=== PATIENT | male | born 1960 | race Caucasian/White ===

== ENCOUNTER 2020-12-10 15:08 | Inpatient (IN) | payer OTHER ==
[~2020-12-10] VITALS: Ht 152.4 cm; Wt 71.7 kg
[2020-12-10 15:08] VITALS: BP 147/77
[2020-12-10 16:03] LABS: BASOPHILS 1.2 % (0.0-2.0); EOSINOPHILS 2.1 % (0.0-3.0); HEMATOCRIT 33.4 % (42.0-52.0); HEMOGLOBIN 10.7 gm/dL (14.0-18.0); LYMPHOCYTES 25.5 % (24.0-44.0); MCH 24.8 pg (26.0-34.0); MCHC 32.1 g/dL (28.0-37.0); MCV 77.3 fL (80.0-100.0); MONOCYTES 14.6 % (1.0-8.0); PLATELET COUNT 154 thou/uL (150-400); POLYS 56.6 % (36.0-66.0); RBC 4.31 mil/uL (4.50-6.00); RDW 19.1 % (10.5-14.5); WBC 3.6 thou/uL (4.0-11.0)
[2020-12-10 16:04] LABS: CALCIUM 8.7 mg/dL (8.5-10.1); POTASSIUM 3.8 mmol/L (3.5-5.1)
[2020-12-10 16:10] LABS: ALBUMIN 2.9 g/dL (3.4-5.0); TOTAL BILIRUBIN 1.5 mg/dL (0.2-1.0); TOTAL PROTEIN 7.8 g/dL (6.4-8.2)
[2020-12-10 16:14] LABS: APTT 25.7 Seconds (24.5-32.8); INR 1.11
[2020-12-10 18:23] VITALS: BP 142/66
[2020-12-10 18:45] VITALS: BP 147/79
[2020-12-10 20:15] VITALS: BP 130/69
[2020-12-10 20:30] LABS: HEMATOCRIT 32.5 % (42.0-52.0); HEMOGLOBIN 10.1 gm/dL (14.0-18.0); MCH 24.4 pg (26.0-34.0); MCHC 31.2 g/dL (28.0-37.0); MCV 78.1 fL (80.0-100.0); RBC 4.15 mil/uL (4.50-6.00); RDW 18.9 % (10.5-14.5); WBC 3.4 thou/uL (4.0-11.0)
--- NOTE | 2020-12-11 00:14 | NUR ---
CALLED DR. NEIL WITH CEITICAL TROP. OF 0.92. PUT IN AN ORDER TO DO THE THIRD TROP ON AT APPROX 0145. PATIENT ADMITTED, RESTING WELL. WILL CONTINUE TO ROUND ON THIS PATIENT. CALL LIGHT IS IN REACH.
[2020-12-11 00:30] VITALS: BP 139/74
[2020-12-11 01:01] LABS: URINE BILIRUBIN 1+ (Negative); URINE BLOOD NEGATIVE (Negative); URINE CLARITY CLEAR; URINE COLOR YELLOW; URINE GLUCOSE-RANDOM* NEGATIVE (Negative); URINE KETONES 1+ (Negative); URINE LEUKOCYTES-REFLEX NEGATIVE (Negative); URINE NITRITE-REFLEX NEGATIVE (Negative); URINE PROTEIN (DIPSTICK) NEGATIVE (Negative)
[2020-12-11 01:49] LABS: ICTOTEST (BILI CONFIRMATORY) Positive (Negative)
[2020-12-11 04:45] VITALS: BP 142/74
--- NOTE | 2020-12-11 05:50 | EKG ---
[address] [place] [address] ELECTROCARDIOGRAM REPORT Name: SHAN LY Room #: 212-P ADM IN M.R.#: [id number] Admission: 12/10/20 Attend Phys: Medardo Asher MD Discharge: Date of : 60 Report #: [id number] [facility] ED Test Date: 2020-12-10 Test Time: 15:46:39 Pat Name: SHAN LY Department: Room: 212 Gender: M Concrete Handler: : 1960 Requested By: Kleber Cox Order Number: [id number] MD: Mo Lott Measurements Intervals [place] Rate: 84 P: 41 NM: 180 QRS: -24 QRSD: 114 T: 108 QT: 384 QTc: 454 Interpretive Statements Sinus rhythm Probable left atrial enlargement Borderline intraventricular conduction delay RVH with secondary repolarization abnrm No previous ECG available for comparison Electronically Signed On 12-11-2020 5:50:38 CDT by Mo Lott [email or web address] <ELECTRONICALLY SIGNED> By: Mo Lott MD, FACC 12/11/20 0550 1546 1546 Mo Lott MD, FACC /EPI
[2020-12-11 07:36] VITALS: BP 137/77
[2020-12-11 08:26] LABS: HEMOGLOBIN 10.1 gm/dL (14.0-18.0); MCHC 31.4 g/dL (28.0-37.0); MCV 79.4 fL (80.0-100.0); RBC 4.03 mil/uL (4.50-6.00); RDW 19.4 % (10.5-14.5); WBC 3.3 thou/uL (4.0-11.0)
[2020-12-11 09:59] LABS: ALBUMIN 2.5 g/dL (3.4-5.0); CALCIUM 8.4 mg/dL (8.5-10.1); CREATININE 0.9 mg/dL (0.7-1.3); MAGNESIUM 1.7 mg/dL (1.8-2.4); PHOSPHORUS 3.7 mg/dL (2.6-4.7); POTASSIUM 3.9 mmol/L (3.5-5.1); TOTAL BILIRUBIN 1.1 mg/dL (0.2-1.0)
[2020-12-11 10:03] LABS: TROPONIN-I 0.85 ng/mL (<0.06)
--- NOTE | 2020-12-11 10:24 | 2DMMODE ---
[facility] [place] [address] 2 D/M-MODE ECHOCARDIOGRAM Name: SHAN LY Room #: 212-P ADM IN M.R.#: [id number] Admission: 12/10/20 Attend Phys: Medardo Asher MD Discharge: Date of : 60 Report #: [id number] THIS REPORT FOR: cc: Dawit Leon MD, John L. MD Santiago, Patrick MD [facility] ~ APPROVED REPORT Study performed: 12/11/2020 08:07:57 EXAM: Comprehensive 2D, Doppler, and color-flow Echocardiogram Patient Location: Bedside Room #: 212 Status: routine BSA: 1.68 HR: 88 bpm BP: 137/77 mmHg Rhythm: NSR Other Information Study Quality: Adequate/low windows. Indications Chest Pain Elevated tropinin Hx: PAF, murmur, COPD, tobacco and ETOH abuse. 2D Dimensions RVDd: 26.63 mm IVSd: 9.71 (7-11mm) LVOT Diam: 19.63 (18-24mm) LVDd: 42.15 mm PWd: 9.98 (7-11mm) LVDs: 29.10 (25-40mm) Left Atrium: 45.36 (27-40mm) Aortic Root: 31.64 mm Volumes Left Atrial Volume (Systole) Single Plane 4CH: 69.53 mL Single Plane 2CH: 68.88 mL LA ESV Index: 44.00 mL/m2 Aortic Valve AoV Peak Ventura.: 4.60 m/s AO Peak Gr.: 75.00 mmHg LVOT Max P.00 mmHg AO Mean Gr.: 40.00 mmHg LVOT Mean P.73 mmHg [facility] [address] [address] 2 D/M-MODE ECHOCARDIOGRAM Name: SHAN LY Room #: 212-P [facility] IN .R.#: [id number] Admission: 12/10/20 Attend Phys: Medardo Asher MD Discharge: Date of : 60 Report #: [id number] LVOT Max V: 1.22 m/s LVOT Mean V: 0.75 m/s LVOT V1 VTI: 23.20 cm ARNOLDO Vmax: 0.89 cm2 SV (LVOT): 70.16 mL Mitral Valve E/A Ratio: 0.6 MV Decel. Time: 155.29 ms MV E Max Ventura.: 0.63 m/s MV A Ventura.: 1.10 m/s MV PHT: 45.03 ms IVRT: 107.27 ms Pulmonary Valve PV Peak Ventura.: 1.51 m/s PV Peak Gr.: 9.15 mmHg Pulmonary Vein P Vein S: 0.63 m/s P Vein A: 0.23 m/s P Vein D: 0.46 m/s P Vein A Dur.: 124.6 msec P Vein S/D Ratio: 1.37 Tricuspid Valve RAP Estimate: 5.00 mmHg Left Ventricle The left ventricle is normal size. There is normal LV segmental wall motion. Mild concentric left ventricular hypertrophy. The left ventricular systolic function is normal. LVEF is 60-65%. Grade I - abnormal relaxation pattern. Right Ventricle The right ventricle is normal size. The right ventricular systolic function is normal. Atria Left atrium is dilated. The right atrium size is normal. Aortic Valve The aortic valve is not well visualized. Leaflets are calcified. Trace aortic regurgitation. Moderate to severe aortic stenosis. Calculated aortic valve area is 0.9 cm2 with maximum pressure gradient of 75 mmHg and mean pressure gradient of 40 mmHg. Mitral Valve The mitral valve is normal in structure. There is no mitral valve [address] [address] 2 D/M-MODE ECHOCARDIOGRAM Name: SHAN LY Room #: 212-P ADM IN M.R.#: [id number] Admission: 12/10/20 Attend Phys: Medardo Asher MD Discharge: Date of : 60 Report #: [id number] regurgitation noted. No evidence of mitral valve stenosis. Tricuspid Valve The tricuspid valve is normal in structure. There is no tricuspid valve regurgitation noted. Unable to assess PA pressure. Pulmonic Valve Pulmonic valve is not well visualized. There is no pulmonic valvular regurgitation. Great Vessels The aortic root is normal in size. Ascending aorta is not well visualized. IVC is normal in size and collapses >50% with inspiration. Pericardium There is no pericardial effusion. <Conclusion> Normal left ventricle size with mild concentric hypertrophy Ejection fraction 60% Grade 1 diastolic dysfunction Normal right ventricular size/function Color-flow Doppler study was performed of the aortic/mitral/tricuspid/pulmonary valve Aortic valve moderately calcified Severe aortic valve stenosis with an aortic valve area estimated 0.9 cm and a mean gradient of 40 mmHg Normal mitral valve structure and function Not no evidence of tricuspid valve insufficiency No pericardial effusion Normal aortic root size. <ELECTRONICALLY SIGNED> By: Mo Lott MD, FACC 12/11/20 1024 1024 1024 Mo Lott MD, FACC /INF
[2020-12-11 10:55] VITALS: BP 152/77
[2020-12-11 12:11] LABS: CLARITY HAZY; COLOR YELLOW; SOURCE ABDOMINAL; TOTAL VOLUME 60 mL
[2020-12-11 12:33] LABS: BF NUCLEATED CELLS 105 /mm3; BF RBC 254 /mm3
[2020-12-11 13:24] LABS: BF MACROPHAGE 31 %; BF NEUTROPHILS 5 %
--- NOTE | 2020-12-11 14:31 | NUR ---
PT RESTING COMFORTABLY TODAY. PARACENTESIS IN IR, 5L OFF. PT AFEBRILE, ADEQUATE UOP, NO BM, APPROPRIATE APPETITE. PT HAS BEEN UPDATED AND EDUCATED ON CONDITION AND POC. PT SLOWLY PROGRESSING TOWARDS POC.
[2020-12-11 15:35] VITALS: BP 110/65
[2020-12-11 16:47] LABS: % SATURATION 6 % (20-39); IRON 21 ug/dL (65-175); TIBC 346 ug/dL (250-450)
[2020-12-11 20:05] VITALS: BP 103/58
[2020-12-11 23:24] LABS: IgG 1528 mg/dL (603-1613)
[2020-12-12 00:06] LABS: HAV IgM AB (ANTI-HAV IgM) Negative (Negative); HEPATITIS B SURFACE AG Negative (Negative); HEPATITIS C VIRUS AB >11.0 (0.0-0.9)
[2020-12-12 04:45] VITALS: BP 111/57
[2020-12-12 05:37] LABS: ALBUMIN 2.3 g/dL (3.4-5.0); CALCIUM 7.8 mg/dL (8.5-10.1); CREATININE 0.9 mg/dL (0.7-1.3); TOTAL BILIRUBIN 0.9 mg/dL (0.2-1.0); TOTAL PROTEIN 6.5 g/dL (6.4-8.2)
[2020-12-12 07:34] VITALS: BP 99/58
[2020-12-12 10:21] VITALS: BP 121/55
--- NOTE | 2020-12-12 16:43 | NUR ---
ASSESSMENT CHARTED - MEDS PER OCT - NO CO'S OF PAIN OR NAUSEA. STATES ABDO FROM PARACNETISIS DONE YESTERDAY IS A LITTLE UNCOMFTABLE. DRESSING TO SITE C/D/I. AMEE DIET AND FLUIDS. MEDS PER OCT. FLUIDS CONTINUE ORDERED, PT AMBULATING IN ROOM INDEPENDANTLY. PT TO HAVE EGD DONE TOMORROW - TO BE NPO AFTER MIDNIGHT - NO CO'S AT THE PRESENT TIME. APPEARS TO BE RESTING COMFORTABLY.
[2020-12-12 20:45] VITALS: BP 127/61
--- NOTE | 2020-12-13 02:53 | NUR ---
PT IS NPO PT HAD A PARCENTESIS AND FLUID TAKEN OFF TODAY. APPEARS JAUNDICE IN APPEARANCE. DENIES ANY PAIN . BAINDAID TO ABDOMEN. VOIDED ALL OVER THE BATHROOM REPORTS HE COULDNT MAKE IT. INFORMED HIM HIS URINAL IS TOO AT BEDSIDE. LUNGS ARE DIMINISHED. ON ROOM AIR. WILL CONTINUE TO ASSESS AND MONITOR NEEDED WITH ONGOING NURSING CARE
[2020-12-13 04:45] VITALS: BP 137/68
[2020-12-13 07:21] VITALS: BP 130/70
[2020-12-13 09:45] LABS: SOURCE ABDOMINAL
[2020-12-13 09:51] LABS: ANA INTERPRETATION Positive (Negative); CERULOPLASMIN 25.8 mg/dL (16.0-31.0)
[2020-12-13 09:51] LABS: BODY FLUID ALBUMIN 0.3 g/dL (Not Estab.); BODY FLUID AMYLASE 24 U/L (()); BODY FLUID CREATININE 0.6 mg/dL (Not Estab.); BODY FLUID GLUCOSE 93 mg/dL (()); BODY FLUID LDH 31 IU/L (()); BODY FLUID PROTEIN 0.7 g/dL (())
--- NOTE | 2020-12-13 10:07 | PATH ---
[facility] [address] [place] [address] PATHOLOGY RPT PROCEDURE Name: SHAN LY Room #: 212-P ADM IN M.R.#: [id number] Admission: 12/10/20 Date of : 60 Discharge: Report #: [id number] Path Case #: [id number] Note [facility] Accession Number: [id number] TESTS RESULT FLAG UNITS REF RANGE LAB Clinician Provided Cytology Information No. of containers..01 Other (Miscellaneous) Source: 01 PERITONEAL FLUID DIAGNOSIS: 02 PERITONEAL FLUID NEGATIVE FOR MALIGNANT EPITHELIAL CELLS. REACTIVE MESOTHELIAL CELLS ARE PRESENT. THIS INTERPRETATION INCLUDES EVALUATION OF A CELL BLOCK. Signed out by: 02 Talia Paniagua MD, Pathologist NPI- [id number] Performed by: 01 Kasandra Tello, Youth Officer ([facility]) Gross description: 01 12ML, YELLOW, 1TP 1CB /LCS 12/12/2020 0254 Local FLAG LEGEND: L-Low Normal,H-High Normal,LL-Alert Low,HH-Alert High <-Panic Low,>-Panic High,A-Abnormal,AA-Critical Abnormal Performed at: [address] [place] [address] Blake Kendrick MD, [address] [address] Talia Paniagua MD, Specimen Comment: A courtesy copy of this report has been sent to [phone] Specimen Comment: [phone] Specimen Comment: Report sent to DR MUNGUIA / DR BAEZA Specimen Comment: A duplicate report has been generated due to demographic updates. Performed at: [address], [place], [place] [id number] MD Blake Kendrick MD Phone: [phone]
[2020-12-13 10:12] LABS: HEMATOCRIT 33.1 % (42.0-52.0); HEMOGLOBIN 10.1 gm/dL (14.0-18.0); MCH 24.4 pg (26.0-34.0); MCHC 30.5 g/dL (28.0-37.0); RBC 4.13 mil/uL (4.50-6.00); RDW 20.1 % (10.5-14.5); WBC 3.5 thou/uL (4.0-11.0)
[2020-12-13 10:44] LABS: CREATININE 0.9 mg/dL (0.7-1.3); MAGNESIUM 1.6 mg/dL (1.8-2.4); POTASSIUM 4.1 mmol/L (3.5-5.1)
[2020-12-13 10:51] VITALS: BP 132/64
[2020-12-13 13:08] LABS: MITOCHONDRIAL ANTIBODY <20.0 Units (0.0-20.0)
--- NOTE | 2020-12-13 14:46 | NUR ---
Chart reviewed and case discussed with the care team. Pt admitted from home and lives alone in a duplex. He is indep with gait and adl's. Dtr is emergency contact. The pt's pcp is Dr. Dawit Leon. Health insurance confirmed and pt has coverage for f/u care and scripts her his [employer] medicare sr plan. No dme or hh needs identified. Possible new cancer dx. Pt has long hx of ethol abuse and drinks beer severaly times weekly. PT has evaluated the pt and he is up ad maribel in his room and cleared for dc home when medically ready. Ethol resource noted on the pt's dc instructions. No cm interventions indicated at this time. Will follow along should needs arise or pt's functional status decline.
[2020-12-13 14:50] VITALS: BP 132/64
[2020-12-13 15:19] VITALS: BP 132/86
--- NOTE | 2020-12-13 19:40 | NUR ---
ASSESSMENT CHARTED MEDS PER MAR - PT NPO FOR EGD THIS AM SO MEDS HELD AND GIVEN POST PROCEDURE. AMEE DIET AND FLUIDS. UP AD ARCADIO TO THE BATHRROM AND IN ROOM. IV FLUIDS D/C'D. ONCOLOGY CONSUTLED THIS SHIFT TO SEE PATIENT. NO CO'S OF PAIIN OR NAUSEA. APPEARS TO BE COMFORTABLE AT THE PRESENT TIME.
[2020-12-13 20:36] VITALS: BP 129/63
--- NOTE | 2020-12-14 01:50 | NUR ---
ASSESSED AT START OF SHIFT. PT DENIES PAIN ON ASSESSMENT. UP AD ARCADIO TO THE BATHROOM. EVENING MEDS GIVEN AND PT AMEE IT WELL. ABD SLIGHTLY DISTENDED. NO FURTHER SIGNS OF DISCOMFORT. WILL CONT TO MONITOR.
[2020-12-14 05:14] VITALS: BP 141/66
[2020-12-14 07:30] VITALS: BP 130/72
[2020-12-14 11:03] VITALS: BP 151/71
[2020-12-14 11:59] VITALS: BP 132/64
--- NOTE | 2020-12-14 12:00 | NUR ---
Pt dcing home later today after MRI. Dtr coming in this morning and pt to update her. Unit RN to call the attending to talk with her as well. Pt will need a cab ride home this evening as his dtr will not be available then. Pt up ad maribel in his room and denies any dc needs or concerns other than a ride home. He states he can make his f/u appt with his pcp and any specialist and coordinate transport with his dtr or landlord who usually help out. He denies need for ethol tx or support and feels he can " quit on his own". Encouragement provided and First call number provided in his dc instructions. Cab voucher provided to his RN.
--- NOTE | 2020-12-14 12:49 | P ---
[facility] [place] [address] PROCEDURE REPORT Name: SHAN LY Room #: 212-P ADM IN M.R.#: [id number] Admission: 12/10/20 Attend Phys: Medardo Asher MD Discharge: Date of : 60 Report #: [id number] THIS REPORT FOR: cc: Dawit Leon MD, John L. MD McElhinney, Christian C. MD ~ DOC #: [id number] cc: MD Dennis Stevens MD DATE OF SERVICE: 12/13/2020 PROCEDURE PERFORMED: Upper endoscopy with biopsies. HISTORY OF PRESENT ILLNESS: The patient is a 60-year-old male with new diagnosis of cirrhosis, ascites, liver mass, CT showing likely esophageal varices. No history of GI bleed. Hemoglobin stable at 10. He is on Coreg at this time. No previous history of upper endoscopy. Plan is for EGD. DESCRIPTION OF PROCEDURE: Risks and benefits of the procedure were explained to the patient, those risks including but not limited to bleeding, perforation and the risk of sedation. He understood these risks and gave informed consent. Sedation was given using propofol per anesthesia. Next, using a standard Olympus upper endoscope, the scope was placed in the patient's mouth and advanced under direct vision through the esophagus, stomach and into the second portion of the duodenum. The upper esophagus was normal. In the mid and distal esophagus, grade II esophageal varices were noted. No stigmata of recent bleeding. The GE junction was normal. Upon entering the stomach, a small hiatal hernia was noted. There was a moderate diffuse portal hypertensive gastropathy noted throughout most of the stomach. In the antrum, there was gastritis with several erosions. No evidence of bleeding. Biopsies were obtained to rule out H. pylori. The pylorus was normal and patent. The duodenal bulb showed multiple erosions consistent with moderate duodenitis. No evidence of bleeding. The first and second portion of the duodenum were normal. The scope was then withdrawn and the procedure terminated. The patient tolerated the procedure well. IMPRESSION: 1. Grade II esophageal varices. No stigmata of recent bleeding. 2. Small hiatal hernia. 3. Portal hypertensive gastropathy. 4. Antral erosions. 5. Duodenitis. RECOMMENDATIONS: 1. Await biopsy results. [address] [address] PROCEDURE REPORT Name: SHAN LY Room #: 212-P [facility] IN M.R.#: [id number] Admission: 12/10/20 Attend Phys: Medardo Asher MD Discharge: Date of : 60 Report #: [id number] 2. Continue beta willard for prophylaxis for possible variceal bleed. 3. Continue PPI therapy. Thank you for allowing me to participate in his care. Dennis Tang MD CCM/PRE <ELECTRONICALLY SIGNED> By: Dennis Tang MD 12/14/20 1249 1326 1141 Dennis Tang MD /nt
[2020-12-14] MEDS ORDERED: ALDACTONE50 MG PO (13:32)
[2020-12-14] MEDS ORDERED: ADULT LOW DOSE81 MG PO (13:32)
[2020-12-14] MEDS ORDERED: CARVEDILOL3.125 MG PO (13:32)
[2020-12-14] MEDS ORDERED: PROTONIX40 M2 PO (13:33)
[2020-12-14] MEDS ORDERED: LASIX 40 MG TAB40 M1 PO (13:33)
[2020-12-14] MEDS ORDERED: VITAMIN B-1100 M2 PO (13:34)
[2020-12-14 15:08] LABS: SMOOTH MUSCLE ANTIBODY 17 Units (0-19)
[2020-12-14 16:26] VITALS: BP 118/77
[2020-12-14 16:58] VITALS: BP 132/64
--- NOTE | 2020-12-14 17:08 | NUR ---
ASSUMED CARE SHIFT CHANGE. ASSESSMETNS CHARTED.MEDS GIVEN. VSS. DENIES PAIN. O2 SATS WNL ROOM AIR. DC ORDERS. DISCUSSED WITH PT. COMMUNICATES UNDERSTANDING. IV REMOVED .TELE REMOVED. PT LEFT UNIT WITH ALL BELONGINGS.
--- NOTE | 2020-12-17 17:06 | PATH ---
[facility] [place] [place] [address] PATHOLOGY RPT PROCEDURE Name: KENNETHSHAN Room #: 212-P DIS IN M.R.#: [id number] Admission: 12/10/20 Date of : 60 Discharge: 12/14/20 Report #: [id number] Path Case #: [id number] [facility] Accession Number: [id number] . 01 Material submitted: . gastrointestinal site - BIOPSY OF GASTRITIS . 01 Clinical history: . ACS, ABDOMINAL ASCITES, UPPER GI PAIN, CIRRHOSIS EGD GASTRITIS, ESOPHAGEAL VARICES . 02 Diagnosis: Gastric mucosa, gastritis, rule out H. pylori, endoscopic biopsy: - Mild chronic active gastritis. - Negative for intestinal metaplasia or atrophy. - Negative for Helicobacter pylori (properly controlled immunohistochemical stain performed). (IUV:nimo; 12/17/2020) QMS 12/17/2020 1454 Local . 02 Comment: An intensive search for Helicobacter pylori-like organisms is negative. Absence of such organisms does not entirely exclude the possibility and may be due to sampling. Other possible etiologies may include chemical gastritis, autoimmune gastritis, gastritis associated with inflammatory bowel disease. Please correlate with clinical, endoscopic, and microbiological studies if clinically indicated. (IUV:nimo; 12/17/2020) . 02 Electronically signed: . Talia Paniagua MD, Pathologist NPI- [id number] . 01 Gross description: . The specimen is received in formalin, labeled "Shan Kenneth, biopsy of gastritis rule out H. pylori" and consist of 2 fragments of soft grace tissue measuring up to 0.3 cm. Entirely submitted in A1.([facility]; 12/14/2020) MAYR/MARY 12/14/2020 2211 Local . 02 Pathologist provided ICD-10: K29.50 . 02 CPT . 463753, [id number] Specimen Comment: A courtesy copy of this report has been sent to [phone], [phone] [address] PATHOLOGY RPT PROCEDURE Name: SHAN LY Room #: 212-P DIS IN M.R.#: [id number] Admission: 12/10/20 Date of : 60 Discharge: 12/14/20 Report #: [id number] Path Case #: [id number] Specimen Comment: [phone] Specimen Comment: Report sent to Specimen Comment: Report sent to , / Performed at: [address] [facility], [place], [place] [id number] MD Blake Kendrick MD Phone: [phone] Performed at: [address] [facility] [id number] MD Talia Paniagua MD Phone: [phone]
== END 2020-12-14 17:09 | DRG 432 ==
LOC: ER 15:08 → EROBS 16:48 → 2N 16:48
PROVIDERS: Emergency Medicine; Internal Medicine; Nurse Practitioner; ADMIT Internal Medicine; ATTEND Internal Medicine
PROC: 0W9G3ZZ Drainage of Peritoneal Cavity, Percutaneous Approach (ICD-10-PCS; principal; 2020-12-11)
PROC: 0DB68ZX Excision of Stomach, Via Natural or Artificial Opening Endoscopic, Diagnostic (ICD-10-PCS; 2020-12-13)
DX: K70.31 Alcoholic cirrhosis of liver with ascites (principal); I21.4 Non-ST elevation (NSTEMI) myocardial infarction; G93.41 Metabolic encephalopathy; E87.1 Hypo-osmolality and hyponatremia; I85.10 Secondary esophageal varices without bleeding; I24.9 Acute ischemic heart disease, unspecified; K70.11 Alcoholic hepatitis with ascites; D01.5 Carcinoma in situ of liver, gallbladder and bile ducts; K75.9 Inflammatory liver disease, unspecified; Z20.822 Contact with and (suspected) exposure to COVID-19; R16.0 Hepatomegaly, not elsewhere classified; I10 Essential (primary) hypertension; F31.9 Bipolar disorder, unspecified; F17.210 Nicotine dependence, cigarettes, uncomplicated; R63.4 Abnormal weight loss; D64.9 Anemia, unspecified; K80.20 Calculus of gallbladder without cholecystitis without obstruction; Z60.2 Problems related to living alone; R53.81 Other malaise; K44.9 Diaphragmatic hernia without obstruction or gangrene; K29.80 Duodenitis without bleeding; K25.9 Gastric ulcer, unspecified as acute or chronic, without hemorrhage or perforation; K31.89 Other diseases of stomach and duodenum; I48.0 Paroxysmal atrial fibrillation; I35.0 Nonrheumatic aortic (valve) stenosis; J43.9 Emphysema, unspecified; Z68.30 Body mass index [BMI] 30.0-30.9, adult; Z88.0 Allergy status to penicillin; Z71.6 Tobacco abuse counseling
CPT/HCPCS: 10081; 62110; 62900; 70005

== ENCOUNTER → 2020-12-10 | Outpatient (CLI) | payer OTHER | LOC: CAT 14:27 | DX: J43.9 Emphysema, unspecified (principal); K74.60 Unspecified cirrhosis of liver; R18.8 Other ascites; R91.8 Other nonspecific abnormal finding of lung field ==